=== PATIENT | female | born 1955 | race Caucasian/White ===

== ENCOUNTER → 2016-11-30 | Outpatient (CLI) | payer OTHER, MEDICARE ==
[2013-11-28 08:54] VITALS: BP 101/63
--- NOTE | 2016-11-30 16:31 | RAD ---
DATE: 11/30/2016 EXAM: DIGITAL SCREEN BILAT W/CAD HISTORY: Screening COMPARISON: None. This is a a sliding exam This study was interpreted with the benefit of Computerized Aided Detection (CAD). FINDINGS: Breast Density: SCATTERED The breast parenchyma shows scattered fibroglandular densities. Breast parenchyma level B. No dominant mass or suspect calcifications are seen. Occasional intramammary lymph nodes and lymph nodes are noted in the right breast. Benign-appearing calcifications are also noted in both breasts. IMPRESSION: Benign finding BI-RADS CATEGORY: 2 BENIGN FINDING(S) RECOMMENDED FOLLOW-UP: 12M 12 MONTH FOLLOW-UP PQRS compliance statement: Patient information was entered into a reminder system with a target due date 11/30/2017 for the next mammogram. Mammography is a sensitive method for finding small breast cancers, but it does not detect them all and is not a substitute for careful clinical examination. A negative mammogram does not negate a clinically suspicious finding and should not result in delay in biopsying a clinically suspicious abnormality. "Our facility is accredited by the [employer] Mammography Program."
== END | disposition home or self-care (01) ==
LOC: MAMMO 15:50
PROVIDERS: ATTEND Family Medicine
DX: Z12.31 Encounter for screening mammogram for malignant neoplasm of breast (principal)
CPT/HCPCS: G0202; 77067

== ENCOUNTER 2021-04-13 15:59 | Emergency (ER) | payer MEDICARE, OTHER ==
[~2021-04-13] VITALS: Ht 157.5 cm; Wt 70.5 kg
[2021-04-13] MEDS ORDERED: OLANZapine 5 MG TABLET PO SCH (16:15)
[2021-04-13 16:45] LABS: BASO # 0.1 x10^3/uL (0.0-0.2); BASO % 1 % (0-3); EOS % 1 % (0-3); HEMATOCRIT 36.9 % (36.0-47.0); HEMOGLOBIN 12.1 g/dL (12.0-15.5); LYMPH % 13 % (24-48); MEAN CORPUSCULAR HEMOGLOBIN 31 pg (25-35); MEAN CORPUSCULAR HGB CONC 33 g/dL (31-37); MEAN CORPUSCULAR VOLUME 95 fL (79-100); MONO # 0.4 x10^3/uL (0.0-1.1); MONO % 5 % (0-9); NEUT # 6.4 x10^3/uL (1.8-7.7); NEUT % 80 % (31-73); PLATELET COUNT 445 x10^3/uL (140-400); RED BLOOD COUNT 3.87 x10^6/uL (3.50-5.40); RED CELL DISTRIBUTION WIDTH 13.7 % (11.5-14.5); WHITE BLOOD COUNT 7.9 x10^3/uL (4.0-11.0)
[2021-04-13 16:45] LABS: BILIRUBIN,URINE SMALL (NEG); CLARITY,URINE CLEAR; COLOR,URINE YELLOW; NITRITE,URINE NEGATIVE (NEG); PH,URINE 5.5 (<5.0-8.0); PROTEIN,URINE NEGATIVE (NEG-TRACE); UROBILINOGEN,URINE 0.2 mg/dL (0.2 mg/dL)
[2021-04-13 16:52] LABS: CALCIUM 8.6 mg/dL (8.5-10.1); POTASSIUM 3.7 mmol/L (3.5-5.1)
[2021-04-13 16:52] LABS: BARBITURATES NEG (NEG); BENZODIAZEPINES POS (NEG); CANNABINOIDS POS (NEG); COCAINE NEG (NEG); METHADONE NEG (NEG); OPIATES POS (NEG); PHENCYCLIDINE NEG (NEG)
[2021-04-13 16:56] LABS: AMPHETAMINE/METHAMPHETAMINE POS (NEG)
[2021-04-13 16:58] LABS: ALBUMIN/GLOBULIN RATIO 0.9 (1.0-1.7); TOTAL BILIRUBIN 0.6 mg/dL (0.2-1.0); TOTAL PROTEIN 8.4 g/dL (6.4-8.2)
[2021-04-13 16:59] LABS: BACTERIA,URINE MOD /HPF (0-FEW); HYALINE CASTS, URINE OCCASIONAL /HPF; RBC,URINE 0 /HPF (0-2)
[2021-04-13] MEDS ORDERED: THIAMINE INJ 100 MG in IV DEXTROSE 5% 50 ML IV ONE (17:30)
[2021-04-13] MEDS ORDERED: IV DEXTROSE 5% - 0.9 % NACL 1,000 ML IV ONE (17:30)
--- NOTE | 2021-04-13 18:02 | PHYS DOC ---
Past Medical History Past Medical History: Arthritis, Bipolar, Other Additional Past Medical Histor: chronic pain all over, shoulder, collarbone fracture Past Surgical History: Hip Replacement, Hysterectomy, Other Additional Past Surgical Histo: right leg and ankle(hardware) Smoking Status: Current Every Day Smoker Alcohol Use: Heavy Drug Use: None General Adult EDM: Chief Complaint: PSYCH EVALUATION HPI: HPI: History gathered from EMS, patient, patient family. Patient is a 65 year old female with history of bipolar disorder and substance abuse who presents with EMS for family's concerns of hallucinations and erratic behavior. Reportedly patient has a history of methamphetamine abuse, but had been in remission. Her brother yesterday and it is believed that she was using once again. Today she is acting erratically, is inconsolable, and is not making any sense. For me she is is crying repeatedly saying "I cannot find my brothers nose." She is unable to reliably answer questions, but does deny recent alcohol use. She nods when asked about drug use, but will not provide any further information. Review of Systems: Review of Systems: Unable to complete reliable ROS due to mental status Heart Score: C/O Chest Pain: No Current Medications: Current Medications Medications (Trade) Dose Ordered Sig/Alfredo Start Time Stop Time Status Last Admin Dose Admin Dextrose/Sodium Chloride 1,000 ml @ 100 mls/hr 1X ONCE 04/13/21 17:30 04/14/21 03:29 04/13/21 17:30 100 MLS/HR Lorazepam (Ativan) 1 mg 1X ONCE 04/13/21 16:15 04/13/21 16:16 DC 04/13/21 16:24 1 MG Olanzapine (ZyPREXA ZYDIS) 5 mg 1X ONCE 04/13/21 16:30 04/13/21 16:31 DC 04/13/21 16:24 5 MG Olanzapine (ZyPREXA) 5 mg 1X 04/13/21 16:15 Thiamine HCl 100 mg/Dextrose 51 ml @ 102 mls/hr 1X ONCE 04/13/21 17:30 04/13/21 17:59 04/13/21 17:46 102 MLS/HR Allergies: Allergies: Allergies Coded Allergies Type Severity Reaction Last Updated Verified No Known Drug Allergies 11/28/13 No Physical Exam: PE: Constitutional: Disheveled, frequently moving, eyes dart from one side of the room to the other very quickly. Seems to have trouble focusing. Scratching herself. HENT: Normocephalic, atraumatic. [] Neck: Normal range of motion, no tenderness, supple, no stridor. [] Cardiovascular:Heart rate regular rhythm, no murmur [] Lungs & Thorax: Bilateral breath sounds clear to auscultation [] Abdomen: Bowel sounds normal, soft, no tenderness, no masses, no pulsatile masses. [] Skin: Warm, dry, no erythema, no rash. [] Back: No tenderness, no CVA tenderness. [] Extremities: No tenderness, no cyanosis, no clubbing, ROM intact, no edema. [] Neurologic: Alert, oriented to person and place. Moving all extremities purposefully. Slurred speech. Psychologic: Denies SI/HI. Is grasping in the air stating "I cannot find my brothers nose." Rapid/pressured speech. Current Patient Data: Labs: Laboratory Tests Test 04/13/21 16:30 04/13/21 16:37 White Blood Count 7.9 x10^3/uL (4.0-11.0) Red Blood Count 3.87 x10^6/uL (3.50-5.40) Hemoglobin 12.1 g/dL (12.0-15.5) Hematocrit 36.9 % (36.0-47.0) Mean Corpuscular Volume 95 fL (79-100) Mean Corpuscular Hemoglobin 31 pg (25-35) Mean Corpuscular Hemoglobin Concent 33 g/dL (31-37) Red Cell Distribution Width 13.7 % (11.5-14.5) Platelet Count 445 x10^3/uL (140-400) H Neutrophils (%) (Auto) 80 % (31-73) H Lymphocytes (%) (Auto) 13 % (24-48) L Monocytes (%) (Auto) 5 % (0-9) Eosinophils (%) (Auto) 1 % (0-3) Basophils (%) (Auto) 1 % (0-3) Neutrophils # (Auto) 6.4 x10^3/uL (1.8-7.7) Lymphocytes # (Auto) 1.0 x10^3/uL (1.0-4.8) Monocytes # (Auto) 0.4 x10^3/uL (0.0-1.1) Eosinophils # (Auto) 0.0 x10^3/uL (0.0-0.7) Basophils # (Auto) 0.1 x10^3/uL (0.0-0.2) Sodium Level 135 mmol/L (136-145) L Potassium Level 3.7 mmol/L (3.5-5.1) Chloride Level 99 mmol/L (98-107) Carbon Dioxide Level 15 mmol/L (21-32) L Anion Gap 21 (6-14) H Blood Urea Nitrogen 28 mg/dL (7-20) H Creatinine 1.0 mg/dL (0.6-1.0) Estimated GFR (Cockcroft-Gault) 56.0 BUN/Creatinine Ratio 28 (6-20) H Glucose Level 88 mg/dL (70-99) Calcium Level 8.6 mg/dL (8.5-10.1) Total Bilirubin 0.6 mg/dL (0.2-1.0) Aspartate Amino Transferase (AST) 29 U/L (15-37) Alanine Aminotransferase (ALT) 24 U/L (14-59) Alkaline Phosphatase 59 U/L (46-116) Total Protein 8.4 g/dL (6.4-8.2) H Albumin 4.0 g/dL (3.4-5.0) Albumin/Globulin Ratio 0.9 (1.0-1.7) L Ethyl Alcohol Level < 10 mg/dL (0-10) Urine Collection Type Void Urine Color Yellow Urine Clarity Clear Urine pH 5.5 (<5.0-8.0) Urine Specific [place] 1.020 (1.000-1.030) Urine Protein Negative mg/dL (NEG-TRACE) Urine Glucose (UA) Negative mg/dL (NEG) Urine Ketones (Stick) >=80 mg/dL (NEG) Urine Blood Negative (NEG) Urine Nitrite Negative (NEG) Urine Bilirubin Small (NEG) Urine Urobilinogen Dipstick 0.2 mg/dL (0.2 mg/dL) Urine Leukocyte Esterase Negative (NEG) Urine RBC 0 /HPF (0-2) Urine WBC 5-10 /HPF (0-4) Urine Squamous Epithelial Cells Occ /LPF Urine Bacteria Mod /HPF (0-FEW) Urine Hyaline Casts Occasional /HPF Urine Mucus Slight /LPF Urine Opiates Screen Pos (NEG) Urine Methadone Screen Neg (NEG) Urine Barbiturates Neg (NEG) Urine Phencyclidine Screen Neg (NEG) Urine Amphetamine/Methamphetamine Pos (NEG) Urine Benzodiazepines Screen Pos (NEG) Urine Cocaine Screen Neg (NEG) Urine Cannabinoids Screen Pos (NEG) Urine Ethyl Alcohol Neg (NEG) Laboratory Tests 04/13/21 16:30 Laboratory Tests 04/13/21 16:30 Vital Signs: Vital Signs Date Time Temp Pulse Resp B/P (MAP) Pulse Ox O2 Delivery O2 Flow Rate FiO2 04/13/21 16:03 98.6 93 22 144/67 (92) 97 Room Air 98.6 EKG: EKG: Sinus rhythm. Normal axis. Rate 88. QT 476. Otherwise intervals normal. No ischemic changes. Normal appearance of AVR. [] Radiology/Procedures: Radiology/Procedures: [] Course & Med Decision Making: Course & Med Decision Making Pertinent Labs and Imaging studies reviewed. (See chart for details) Patient is 65-year-old female with history of bipolar and substance abuse (previously in remission) who presents with an episode concerning for substance- induced psychosis in the setting of recent family loss. On arrival is afebrile, vitally stable. She is slurring her speech and has appearance on exam consistent with sympathomimetic toxidrome. Drug screen + for thc, benzos, meth, and opiates. Provided with p.o. Ativan and olanzapine. Patient is now resting more comfortably. Labs show evidence of starvation ketosis. Dextrose containing fluid infusion and thiamine ordered. Psychiatric assessment team consulted for evaluation. Patient will be signed out to oncoming attending at the end of my shift with ultimate disposition pending. 1801 Sari Disclaimer: Sari Disclaimer: This electronic medical record was generated, in whole or in part, using a voice recognition dictation system. 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
[2021-04-13 18:54] LABS: MAGNESIUM 2.3 mg/dL (1.8-2.4)
[2021-04-14 07:26] LABS: CALCIUM 8.2 mg/dL (8.5-10.1); CREATININE 0.8 mg/dL (0.6-1.0); GFR 72.4; POTASSIUM 3.6 mmol/L (3.5-5.1)
[2021-04-14] MEDS ORDERED: ACETAMINOPHEN 500 MG TABLET PO ONE (09:30)
[2021-04-14] MEDS ORDERED: NICOTINE 21MG PATCH. TD PRN (09:30)
[2021-04-14 13:19] VITALS: BP 120/57
--- NOTE | 2021-04-14 13:27 | EKG ---
[facility] [address] [place] [id number] Test Date: 2021-04-13 Test Time: 16:31:23 Pat Name: MIKE BEE Department: Room: Gender: F Investigation Specialist: : [id number] Requested By: SHANTI MCDANIEL Order Number: [id number] Reading MD: Darin Garcia Measurements Intervals [place] Rate: 88 P: 48 NV: 152 QRS: 27 QRSD: 86 T: 37 QT: 390 QTc: 476 Interpretive Statements SINUS RHYTHM PROLONGED QT Electronically Signed On 04-15-2021 19:38:45 MANAGER ACCESS by Darin Garcia
== END 2021-04-14 13:47 ==
LOC: ER 15:59
DX: F15.951 Other stimulant use, unspecified with stimulant-induced psychotic disorder with hallucinations (principal); Z20.822 Contact with and (suspected) exposure to COVID-19; F10.229 Alcohol dependence with intoxication, unspecified; Y90.0 Blood alcohol level of less than 20 mg/100 ml; F31.9 Bipolar disorder, unspecified; G89.29 Other chronic pain; F17.200 Nicotine dependence, unspecified, uncomplicated; Z90.710 Acquired absence of both cervix and uterus
CPT/HCPCS: 36415; 80048; 80053; 80307; 81001; 83735; 84100; 85025; 87426; 93005; 96365; 99285; G0480; J3411; J7042; J7060; U0003; U0005